=== PATIENT | female | born 1995 ===

== ENCOUNTER 2017-12-01 19:28 | Emergency (ER) | payer MEDICAID, OTHER ==
[2017-12-01 19:29] VITALS: BMI 27.8
[2017-12-01 20:02] VITALS: TEMP 98.1
[2017-12-01 21:04] LABS: HEMOGLOBIN 11.1 g/dL (12.0-16.0); MEAN CELL VOLUME 88.8 fl (80.0-105.0); MEAN CORPUSCULAR HEMOGLOBIN 28.9 pg (25.0-35.0); MEAN CORPUSCULAR HGB CONC 32.6 g/dl (31.0-37.0); MEAN PLATELET VOLUME 10.9 fl (7.0-11.0); RBC 3.84 10^6/uL (3.5-6.1); RED CELL DISTRIBUTION WIDTH 13.8 % (11.5-14.5); WHITE BLOOD COUNT 11.4 10^3/ul (4.5-11.0)
[2017-12-01 21:15] LABS: INR 1.09 (0.93-1.08); PARTIAL THROMBOPLASTIN TIME 31.3 Seconds (25.1-36.5); PROTHROMBIN TIME 12.4 SECONDS (9.4-12.5)
--- NOTE | 2017-12-01 21:17 | ED PDOC ---
Arrival/HPI - General Chief Complaint: Chest Pain Time Seen by Provider: 12/01/17 19:58 Historian: Patient - History of Present Illness Narrative History of Present Illness (Text): 12/01/17 20:35 Kmi Vieyra is a 22 year old female who presents to the Emergency department complaining of chest discomfort which began today while taking the bus. Patient notes there is pain when pressing on her chest or if she takes any deep breaths. Patient denies any fever, chills, shortness of breath, cough, nausea, vomiting, back pain, leg pain, neck pain, headache, dizziness, or any other complaints. Symptom Onset: Gradual Symptom Course: Unchanged Activities at Onset: Light Context: Home Past Medical History - Provider Review Nursing Documentation Reviewed: Yes - Infectious Disease Hx of Infectious Diseases: None - Psychiatric Hx Substance Use: No - Anesthesia Hx Anesthesia: No Family/Social History - Physician Review Nursing Documentation Reviewed: Yes Family/Social History: Unknown Family HX Smoking Status: Never Smoked Hx Alcohol Use: No Hx Substance Use: No Allergies/Home Meds Allergies/Adverse Reactions: Allergies No Known Allergies Allergy (Verified 04/04/16 02:57) Review of Systems - Physician Review All systems were reviewed & negative as marked: Yes - Review of Systems Constitutional: Normal. absent: Fevers Eyes: Normal ENT: Normal Respiratory: Normal. absent: SOB, Cough Cardiovascular: Chest Pain Gastrointestinal: Normal. absent: Abdominal Pain, Diarrhea, Nausea, Vomiting Genitourinary Female: Normal. absent: Dysuria, Frequency, Hematuria, Urine Output Changes, Vaginal Discharge Musculoskeletal: Normal. absent: Back Pain, Neck Pain Skin: Normal. absent: Rash Neurological: Normal. absent: Headache, Dizziness Endocrine: Normal Hemo/Lymphatic: Normal Psychiatric: Normal Physical Exam Vital Signs Reviewed: Yes Vital Signs Temp Pulse Resp BP Pulse Ox 12/01/17 19:29 98.1 F 80 16 136/81 100 Temperature: Afebrile Blood Pressure: Normal Pulse: Regular Respiratory Rate: Normal Appearance: Positive for: Well-Appearing, Non-Toxic, Comfortable Pain Distress: None Mental Status: Positive for: Alert and Oriented X 3 - Systems Exam Head: Present: Atraumatic, Normocephalic Pupils: Present: PERRL Extroacular Muscles: Present: EOMI Conjunctiva: Present: Normal Mouth: Present: Moist Mucous Membranes Neck: Present: Normal Range of Motion Respiratory/Chest: Present: Clear to Auscultation, Good Air Exchange, Tender to Palpation (Anterior chest tenderness to palpation). No: Respiratory Distress, Accessory Muscle Use Cardiovascular: Present: Regular Rate and Rhythm, Normal S1, S2. No: Murmurs Abdomen: Present: Normal Bowel Sounds. No: Tenderness, Distention, Peritoneal Signs Back: Present: Normal Inspection. No: CVA Tenderness, Midline Tenderness, Paraspinal Tenderness Upper Extremity: Present: Normal Inspection. No: Cyanosis, Edema Lower Extremity: Present: Normal Inspection. No: Edema Neurological: Present: GCS=15, CN II-XII Intact, Speech Normal Skin: Present: Warm, Dry, Normal Color. No: Rashes Psychiatric: Present: Alert, Oriented x 3, Normal Insight, Normal Concentration Medical Decision Making ED Course and Treatment: 12/01/17 20:35 Impression: 22 year old female complaining of chest discomfort today. Plan: -- EKG -- Chest X-ray -- Labs, cardiac enzymes -- Reassess and disposition Progress Notes: Reviewed EKG, NSR at 69 bpm. Sinus arrhythmia. No acute changes. 12/01/17 23:17 Chest X-ray reviewed, shows no acute processes. - Lab Interpretations Lab Results: 12/01/17 20:50 12/01/17 20:50 Lab Results 12/01/17 20:50: WBC 11.4 H D, RBC 3.84, Hgb 11.1 L, Hct 34.1 L, MCV 88.8, MCH 28.9, MCHC 32.6, RDW 13.8, Plt Count 297, MPV 10.9 12/01/17 20:50: Sodium 139, Potassium 4.7, Chloride 102, Carbon Dioxide 27, Anion Gap 15, BUN 14, Creatinine 0.7, Est GFR ( Amer) > 60, Est GFR (Non- Af Amer) > 60, Random Glucose 135 H, Calcium 10.3, Total Bilirubin 0.4, AST 74 H , ALT 41, Alkaline Phosphatase 84, Lactate Dehydrogenase 521, Total Creatine Kinase 70, Troponin I < 0.01, Total Protein 8.9 H, Albumin 4.7, Globulin 4.2, Albumin/Globulin Ratio 1.1 12/01/17 20:50: PT 12.4, INR 1.09 H, APTT 31.3 I have reviewed the lab results: Yes - RAD Interpretation Radiology Orders: 12/01/17 20:40 CHEST PORTABLE [RAD] Stat Senior Product Consultant: ED Physician - EKG Interpretation Interpreted by ED Physician: Yes Type: 12 lead EKG - Medication Orders Current Medication Orders: Discontinued Medications Ketorolac Tromethamine (Toradol) 30 mg IVP ONCE ONE Stop: 12/01/17 22:18 Last Admin: 12/01/17 22:22 Dose: 30 mg MAR Pain Assessment Document 12/01/17 22:22 CNR (Rec: 12/01/17 22:22 CNR [id number]) Pain Reassessment Is this a pain reassessment? Yes IVP Administration Document 12/01/17 22:22 CNR (Rec: 12/01/17 22:22 CNR [id number]) Charges for Administration # of IVP Administrations 1 - Scribe Statement The provider has reviewed the documentation as recorded by the Scribe Olivia Prieto All medical record entries made by the Scribe were at my direction and personally dictated by me. I have reviewed the chart and agree that the record accurately reflects my personal performance of the history, physical exam, medical decision making, and the department course for this patient. I have also personally directed, reviewed, and agree with the discharge instructions and disposition. Disposition/Present on Arrival - Present on Arrival Any Indicators Present on Arrival: No History of DVT/PE: No History of Uncontrolled Diabetes: No Urinary Catheter: No History of Decub. Ulcer: No History Surgical Site Infection Following: None - Disposition Have Diagnosis and Disposition been Completed?: Yes Diagnosis: Musculoskeletal chest pain Disposition: HOME/ ROUTINE Disposition Time: 23:20 Patient Plan: Discharge Condition: GOOD Discharge Instructions (ExitCare): Chest Pain (ED), Musculoskeletal Pain (ED) Additional Instructions: Rest/no strenuous physical activity/take meds as prescribed/follow up with your doctor this week Prescriptions: Naproxen [Naprosyn] 500 mg PO BID PRN #14 tab PRN Reason: Pain Referrals: PCP,NO [Primary Care Provider] - Follow up with primary Forms: [employer] (Greek), WORK NOTE
[2017-12-01 21:19] LABS: ALB/GLOB RATIO 1.1 (1.1-1.8); ALBUMIN 4.7 g/dL (3.0-4.8); ALT/SGPT 41 U/L (7-56); AST/SGOT 74 U/L (14-36); BLOOD UREA NITROGEN 14 mg/dL (7-21); CALCIUM 10.3 mg/dL (8.4-10.5); GFR AFRICAN-AMERICAN > 60; GFR NON-AFRICAN AMERICAN > 60
[2017-12-01 21:30] LABS: TROPONIN I < 0.01 ng/mL
[2017-12-01 23:42] VITALS: BP 124/72; PULSE 82; RESP 18; O2SAT 98
--- NOTE | 2017-12-02 08:37 | RAD ---
HISTORY: pain COMPARISON: 12/12/2014 FINDINGS: LUNGS: No active pulmonary disease. PLEURA: No significant pleural effusion identified, no pneumothorax apparent. CARDIOVASCULAR: Normal. OSSEOUS STRUCTURES: No significant abnormalities. VISUALIZED UPPER ABDOMEN: Normal. OTHER FINDINGS: None. IMPRESSION: No active disease.
--- NOTE | 2017-12-02 10:58 | CARD ---
APPROVED REPORT EKG Measurement Heart [id number] <Conclusion> Sinus rhythm with marked sinus arrhythmia Otherwise normal ECG
== END 2017-12-01 23:42 | disposition home or self-care (01) ==
LOC: ED 19:28
DX: R07.89 Other chest pain (principal)
CPT/HCPCS: 71045; 80053; 82550; 83615; 84484; 85027; 85610; 85730; 93005; 96374; 99283; J1885

== ENCOUNTER 2018-06-25 14:56 | Emergency (ER) | payer OTHER ==
[2018-06-25 14:57] VITALS: BMI 27.8
[2018-06-25 15:11] VITALS: RESP 18
--- NOTE | 2018-06-25 15:47 | ED PDOC ---
Arrival/HPI - History of Present Illness Time/Duration: < month Symptom Onset: Gradual Symptom Course: Unchanged Activities at Onset: Rest <Michael Obrien - Last Filed: 06/25/18 16:57> - General Historian: Patient <Hernando Montejo - Last Filed: 06/27/18 08:09> - General Chief Complaint: Abnormal Skin Integrity Time Seen by Provider: 06/25/18 15:00 - History of Present Illness Narrative History of Present Illness (Text): 06/25/18 15:21 Miss Vieyra is a 23 year old female with no significant PMHx who presents to ED with a skin rash. She reports rash for two weeks that began on L buttock and spread to cover both legs over the past two weeks. The rash is pruritic and cantu in the shower. She has not experienced and fevers, chills, nausea, vomiting, congestion, fatigue. Pt denies any allergies, denies recent travel, bug bites, denies being outside in the gardiner. She denies using any new lotions , soaps, shampoos, or detergents. She has never had a similar rash before. 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 (Michael Obrien) Past Medical History - Provider Review Nursing Documentation Reviewed: Yes - Infectious Disease Hx of Infectious Diseases: None - Reproductive Menopause: No - Pulmonary Hx Respiratory Disorders: No - Neurological Hx Neurological Disorder: No - Psychiatric Hx Substance Use: No - Anesthesia Hx Anesthesia: No <Michael Obrien - Last Filed: 06/25/18 16:57> Family/Social History - Physician Review Nursing Documentation Reviewed: Yes Family/Social History: No Known Family HX Smoking Status: Never Smoked Hx Alcohol Use: No Hx Substance Use: No <Michael Obrien - Last Filed: 06/25/18 16:57> Allergies/Home Meds <Michael Obrien - Last Filed: 06/25/18 16:57> <Hernando Montejo - Last Filed: 06/27/18 08:09> Allergies/Adverse Reactions: Allergies No Known Allergies Allergy (Verified 04/04/16 02:57) Review of Systems - Physician Review All systems were reviewed & negative as marked: Yes - Review of Systems Constitutional: Normal. absent: Fatigue, Fevers Eyes: Normal. absent: Vision Changes ENT: Normal. absent: Sore Throat, Rhinorrhea Respiratory: Normal. absent: SOB, Cough Cardiovascular: Normal. absent: Chest Pain, Palpitations, Edema Gastrointestinal: Normal. absent: Abdominal Pain, Constipation, Diarrhea, Nausea, Vomiting Genitourinary Female: Normal. absent: Dysuria, Frequency Musculoskeletal: Normal. absent: Arthralgias, Back Pain, Neck Pain, Joint Swelling Skin: Rash, Pruritis. absent: Skin Lesions, Laceration, Abscess, Ulcer, Cellulitis Neurological: Normal. absent: Headache, Dizziness, Focal Weakness, Speech Changes Psychiatric: Normal. absent: Anxiety, Depression <Michael Obrien - Last Filed: 06/25/18 16:57> Physical Exam Vital Signs Reviewed: Yes Temperature: Afebrile Blood Pressure: Normal Pulse: Regular Respiratory Rate: Normal Appearance: Positive for: Well-Appearing Pain Distress: None Mental Status: Positive for: Alert and Oriented X 3 - Systems Exam Head: Present: Atraumatic, Normocephalic Pupils: Present: PERRL Extroacular Muscles: Present: EOMI. No: Gaze Palsy Conjunctiva: Present: Normal. No: Injected, Icteric Mouth: Present: Moist Mucous Membranes Pharnyx: Present: Normal. No: ERYTHEMA, EXUDATE Nose (External): Present: Atraumatic. No: Abrasion, Contusion Neck: Present: Normal Range of Motion. No: JVD Respiratory/Chest: Present: Clear to Auscultation, Good Air Exchange. No: Respiratory Distress, Accessory Muscle Use Cardiovascular: Present: Regular Rate and Rhythm, Normal S1, S2. No: Murmurs Abdomen: Present: Normal Bowel Sounds. No: Tenderness, Distention, Peritoneal Signs, Rebound, Guarding Upper Extremity: Present: NORMAL PULSES. No: Cyanosis, Edema, Tenderness, Swelling Lower Extremity: Present: NORMAL PULSES. No: Edema, Cyanosis, Tenderness, Swelling Neurological: Present: GCS=15, CN II-XII Intact, Speech Normal Skin: Present: Warm, Dry, Rashes (+ diffuse slightly indurated and mildly erethamatous rash in small patches covering both legs and few spots on arms). No: Laceration Psychiatric: Present: Alert, Oriented x 3 <Michael Obrien Last Filed: 06/25/18 16:57> Vital Signs Temp Pulse Resp BP Pulse Ox 06/25/18 16:49 98.4 F 70 18 124/74 100 06/25/18 16:32 68 18 128/78 98 06/25/18 15:08 98.6 F 70 18 132/81 100 Medical Decision Making <Michael Obrien - Last Filed: 06/25/18 16:57> <Hernando Montejo - Last Filed: 06/27/18 08:09> ED Course and Treatment: 1) Skin rash * D/c with referral to f/u with derm * Rx for Mupirocin 2% topical TID (Michael Obrien) 06/25/18 16:32 A 23 year old female presenting to the Emergency Department complaining of a skin rash. Patient Seen With Resident: In agreement with resident note. Patient was seen and evaluated with resident, came up with plan and treatment together. (Hernando Montejo) <Michael Obrien - Last Filed: 06/25/18 16:57> - PA / MANAGER RN CASE / Resident Statement MD/ has reviewed & agrees with the documentation as recorded. MD/DO has examined the patient and agrees with the treatment plan. - Scribe Statement The provider has reviewed the documentation as recorded by the Scribe <Hernando Montejo - Last Filed: 06/27/18 08:09> - Scribe Statement Serena Hooker All medical record entries made by the Scribe were at my direction and personally dictated by me. I have reviewed the chart and agree that the record accurately reflects my personal performance of the history, physical exam, medical decision making, and the department course for this patient. I have also personally directed, reviewed, and agree with the discharge instructions and disposition. (Hernando Montejo) Disposition/Present on Arrival - Present on Arrival History of DVT/PE: No History of Uncontrolled Diabetes: No Urinary Catheter: No History of Decub. Ulcer: No History Surgical Site Infection Following: None <Michael Obrien - Last Filed: 06/25/18 16:57> - Present on Arrival Any Indicators Present on Arrival: No - Disposition Have Diagnosis and Disposition been Completed?: Yes Disposition Time: 16:28 Patient Plan: Discharge <Hernando Montejo - Last Filed: 06/27/18 08:09> - Disposition Diagnosis: Folliculitis Disposition: HOME/ ROUTINE Condition: STABLE Discharge Instructions (ExitCare): Folliculitis (DC) Prescriptions: Mupirocin 2% Ointment [Bactroban Ointment] 15 gm EXT TID #1 tube Referrals: James Coker MD [Staff Provider] - Follow up with primary Veronica Whitaker MD [Medical Doctor] - Follow up with primary [facility] [Outside] - Follow up with primary Forms: [employer] (Palauan), WORK NOTE
[2018-06-25 16:52] VITALS: BP 124/74; PULSE 70; TEMP 98.4; O2SAT 100
== END 2018-06-25 17:04 | disposition home or self-care (01) ==
LOC: ED 14:56
DX: L73.9 Follicular disorder, unspecified (principal)

== ENCOUNTER 2018-08-19 13:19 | Emergency (ER) | payer OTHER ==
[2018-08-19 13:20] VITALS: BMI 27.8
[2018-08-19 13:26] VITALS: TEMP 98.4
[2018-08-19] MEDS ORDERED: Sodium Chloride 0.9% 500 ML IV STA (13:36)
--- NOTE | 2018-08-19 13:44 | ED PDOC ---
Arrival/HPI - General Chief Complaint: Abdominal Pain Time Seen by Provider: 08/19/18 13:21 Historian: Patient - History of Present Illness Narrative History of Present Illness (Text): 08/19/18 13:38 23 year old female, , with no significant past medical history, presents to the Emergency Department accompanied by boyfriend complaining of suprapubic abdominal pain, nausea and vomiting since 2 days. Patient informs her LNMP was June 06 and is unsure of . Patient denies any other associated somatic complaints. Patient denies any fever, chills, diarrhea, chest pain, shortness of breath, cough, headache, dizziness, neck pain, back pain, or any other complaints. Time/Duration: < week Symptom Onset: Gradual Symptom Course: Unchanged Quality: Aching Activities at Onset: Light Context: Home Past Medical History - Provider Review Nursing Documentation Reviewed: Yes - Infectious Disease Hx of Infectious Diseases: None - Cardiac Hx Cardiac Disorders: No - Pulmonary Hx Respiratory Disorders: No - Neurological Hx Neurological Disorder: No - HEENT Hx HEENT Disorder: No - Renal Hx Renal Disorder: No - Endocrine/Metabolic Hx Endocrine Disorders: No - Hematological/Oncological Hx Blood Disorders: No - Integumentary Hx Dermatological Disorder: Yes Other/Comment: ABSCESS - Musculoskeletal/Rheumatological Hx Musculoskeletal Disorders: No - Gastrointestinal Hx Gastrointestinal Disorders: No - Genitourinary/Gynecological Hx Genitourinary Disorders: Yes Hx Urinary Tract Infection: Yes - Psychiatric Hx Psychophysiologic Disorder: No Hx Substance Use: No - Anesthesia Hx Anesthesia: No Family/Social History - Physician Review Nursing Documentation Reviewed: Yes Family/Social History: No Known Family HX Smoking Status: Never Smoked Hx Alcohol Use: No Hx Substance Use: No Allergies/Home Meds Allergies/Adverse Reactions: Allergies No Known Allergies Allergy (Verified 08/19/18 13:22) Review of Systems - Physician Review All systems were reviewed & negative as marked: Yes - Review of Systems Constitutional: absent: Fevers Respiratory: absent: SOB, Cough Cardiovascular: absent: Chest Pain Gastrointestinal: Abdominal Pain, Nausea, Vomiting. absent: Diarrhea Genitourinary Female: absent: Dysuria Musculoskeletal: absent: Back Pain, Neck Pain Skin: absent: Rash Neurological: absent: Headache, Dizziness Physical Exam Vital Signs Reviewed: Yes Vital Signs Temp Pulse Resp BP Pulse Ox 08/19/18 13:22 98.4 F 75 16 121/74 100 Temperature: Afebrile Blood Pressure: Normal Pulse: Regular Respiratory Rate: Normal Appearance: Positive for: Well-Appearing, Non-Toxic, Comfortable Pain Distress: None Mental Status: Positive for: Alert and Oriented X 3 - Systems Exam Head: Present: Atraumatic, Normocephalic Pupils: Present: PERRL Extroacular Muscles: Present: EOMI Conjunctiva: Present: Normal Mouth: Present: Moist Mucous Membranes Neck: Present: Normal Range of Motion Respiratory/Chest: Present: Clear to Auscultation, Good Air Exchange. No: Respiratory Distress, Accessory Muscle Use Cardiovascular: Present: Regular Rate and Rhythm, Normal S1, S2. No: Murmurs Abdomen: Present: Tenderness (suprapubic tenderness). No: Distention, Peritoneal Signs Back: Present: Normal Inspection Upper Extremity: Present: Normal Inspection. No: Cyanosis, Edema Lower Extremity: Present: Normal Inspection. No: Edema Neurological: Present: GCS=15, CN II-XII Intact, Speech Normal Skin: Present: Warm, Dry, Normal Color. No: Rashes Psychiatric: Present: Alert, Oriented x 3, Normal Insight, Normal Concentration Medical Decision Making ED Course and Treatment: 08/19/18 13:36 Impression: 23 year old female presents to the Emergency Department complaining of suprapubic abdominal pain. Plan: -- Labs -- IV fluids -- UA -- US OB -- Reassess and disposition Prior Visits: Notes and results from previous visits were reviewed. Progress Notes: 08/19/18 13:36 Patient is tested positive for in the Emergency Department. Patient was notified. 08/19/18 15:30 US OB reviewed by radiologist, shows: FINDINGS: BABY B Cardiac activity: Present Rate: 147 BPM Measurements: [place] rump length: 3.78 cm Gestational age based on CRL 10 WEEKS 4 DAYS PIOTR based on biometry: 03/12/2019 Gestational concordance DOCUMENTED Yolk sac identified Cervix: No Cervical abnormalities: Negative examination for cervical dilatation or effacement. Subchorionic hemorrhage: None UTERUS: 7.2 X 7.3 X 11.1 cm. ADNEXA: Right: 1.4 x 1.6 x 3.2 cm. Normal Doppler arterial waveform documented. Left: Not visible Fluid in the cul-de-sac: None IMPRESSION: Twin live intrauterine gestations. Gestational concordance documented for both live gestations. 08/19/18 19:49 iup confimred. advise outptuf . ua treated. - RAD Interpretation Radiology Orders: 08/19/18 13:36 TRANSVAGINAL [US] Stat - Medication Orders Current Medication Orders: Sodium Chloride (Sodium Chloride 0.9%) 500 mls @ 1,000 mls/hr IV .Q30M STA Stop: 08/19/18 14:05 - Scribe Statement The provider has reviewed the documentation as recorded by the Scribe Nura Lynch. All medical record entries made by the Scribe were at my direction and personally dictated by me. I have reviewed the chart and agree that the record accurately reflects my personal performance of the history, physical exam, medic al decision making, and the department course for this patient. I have also personally directed, reviewed, and agree with the discharge instructions and disposition. Disposition/Present on Arrival - Present on Arrival Any Indicators Present on Arrival: No History of DVT/PE: No History of Uncontrolled Diabetes: No Urinary Catheter: No History of Decub. Ulcer: No History Surgical Site Infection Following: None - Disposition Have Diagnosis and Disposition been Completed?: Yes Diagnosis: Threatened miscarriage in early Disposition: HOME/ ROUTINE Disposition Time: 04:00 Condition: STABLE Discharge Instructions (ExitCare): Threatened Miscarriage (DC), Multiple Births Prescriptions: RX: Cefpodoxime [Vantin] 100 mg PO BID #20 tab Referrals: [facility] [Outside] - Follow up with primary [facility] [place] - [facility] [Outside] - Follow up with primary Forms: [employer] (Slovenian)
[2018-08-19 14:31] LABS: BASO # 0.01 K/mm3 (0.0-2.0); BASO % 0.2 % (0.0-3.0); EOS % 0.5 % (1.5-5.0); GRAN # 4.1 (1.4-6.5); GRAN % 63.1 % (50.0-68.0); HEMOGLOBIN 11.2 g/dL (12.0-16.0); LYMPH % 30.5 % (22.0-35.0); MEAN CELL VOLUME 88.3 fl (80.0-105.0); MEAN CORPUSCULAR HEMOGLOBIN 29.2 pg (25.0-35.0); MEAN CORPUSCULAR HGB CONC 33.1 g/dl (31.0-37.0); MONO # 0.4 (0.1-0.6); MONO % 5.7 % (1.0-6.0); RBC 3.83 10^6/uL (3.5-6.1); RED CELL DISTRIBUTION WIDTH 13.6 % (11.5-14.5); WHITE BLOOD COUNT 6.5 10^3/ul (4.5-11.0)
[2018-08-19 14:38] LABS: ALBUMIN 4.5 g/dL (3.0-4.8); ALT/SGPT 24 U/L (7-56); AST/SGOT 22 U/L (14-36); BLOOD UREA NITROGEN 8 mg/dL (7-21); CALCIUM 9.8 mg/dL (8.4-10.5); GFR NON-AFRICAN AMERICAN > 60
[2018-08-19 14:42] LABS: URINE BILIRUBIN NEGATIVE (NEGATIVE); URINE BLOOD NEGATIVE (NEGATIVE); URINE GLUCOSE (UA) NEGATIVE (NEGATIVE); URINE LEUKOCYTE ESTERASE SMALL Leu/uL (NEGATIVE); URINE PROTEIN TRACE mg/dL (<30 mg/dL); URINE UROBILINOGEN 0.2 E.U./dL (<1 E.U./dL)
[2018-08-19 14:44] LABS: URINE APPEARANCE CLEAR (CLEAR); URINE COLOR YELLOW (YELLOW)
[2018-08-19 14:44] LABS: INR 1.05; PARTIAL THROMBOPLASTIN TIME 29.1 Seconds (25.1-36.5)
[2018-08-19 14:46] VITALS: RESP 18; O2SAT 98
[2018-08-19 14:46] LABS: HCG,QUALITATIVE URINE POSITIVE (NEGATIVE)
[2018-08-19 14:52] LABS: URINE AMORPHOUS SEDIMENT FEW; URINE BACTERIA MANY (NEG); URINE RBC 0 - 2 /hpf (0-2)
--- NOTE | 2018-08-19 16:23 | US ---
Date of service: 08/19/2018 PROCEDURE: First trimester ultrasound HISTORY: abd pain preg COMPARISON: None TECHNIQUE: Standard protocol for this study/examination. FINDINGS: LMP: 06/06/2018 Prior examinations from the current : NONE TECHNIQUE: Real-time 2D imaging, duplex and color Doppler. FINDINGS: BABY A Cardiac activity: Present Rate: 141 BPM Measurements: [place] rump length: 3.72 cm Gestational age based on CRL 10 WEEKS 4 DAYS Gestational age 9 WEEKS 4 DAYS based on gestational sac measurement 4.15 cm Gestational age derived from LMP: 10 WEEKS 4 DAYS PIOTR based on LMP: 03/13/2019 PIOTR based on biometry: 03/16/2019 Gestational concordance DOCUMENTED FINDINGS: BABY B Cardiac activity: Present Rate: 147 BPM Measurements: [place] rump length: 3.78 cm Gestational age based on CRL 10 WEEKS 4 DAYS PIOTR based on biometry: 03/12/2019 Gestational concordance DOCUMENTED Yolk sac identified Cervix: No Cervical abnormalities: Negative examination for cervical dilatation or effacement. Subchorionic hemorrhage: None UTERUS: 7.2 X 7.3 X 11.1 cm. ADNEXA: Right: 1.4 x 1.6 x 3.2 cm. Normal Doppler arterial waveform documented. Left: Not visible Fluid in the cul-de-sac: None IMPRESSION: Twin live intrauterine gestations. Gestational concordance documented for both live gestations.
[2018-08-19 16:33] VITALS: BP 116/69; PULSE 75
== END 2018-08-19 17:17 | disposition home or self-care (01) ==
LOC: ED 13:19
DX: O20.0 Threatened abortion (principal); Z3A.10 10 weeks gestation of pregnancy
CPT/HCPCS: 76815; 80053; 81001; 84702; 84703; 85025; 85610; 85730; 86850; 86900; 87086; 99284; J7040